=== PATIENT | male | born 1965 | race Caucasian/White ===

== ENCOUNTER 2016-02-27 16:02 | Emergency (ER) | payer MEDICARE ==
--- NOTE | 2016-02-27 17:06 | ERPHSYRPT ---
- History of Present Illness Time Seen by Provider: 02/27/16 16:45 Source: patient, other (caregiver) Exam Limitations: language barrier, physical impairment, other (Pt. is severly mentally challenged) Patient Subjective Stated Complaint: pulled g tube out. Triage Nursing Assessment: had a 12 second seizure at 1534 and then pulled his gtube button out. insertion hole intact to abd. pt is appropriate (severe MR)-- caregiver present Timing/Duration: today Severity: mild Associated Symptoms: denies symptoms Allergies/Adverse Reactions: carbamazepine Allergy (Mild, Verified 02/27/16 16:15) Cephalosporins Allergy (Mild, Verified 02/27/16 16:15) Carbapenems Allergy (Unknown, Verified 02/27/16 16:15) Penicillins Allergy (Unknown, Verified 02/27/16 16:15) Home Medications: Acetaminophen 325 mg [Tylenol 325 mg] 650 mg RC Q4H PRN PRN 06/09/15 [ History] Docusate Sodium 100 mg [Colace 100 MG] 100 mg G-TUBE BID 06/19/15 [History ] Ferrous Sulfate 325 mg [Feosol 325 mg] 325 mg PO DAILY 06/19/15 [History] Phenobarbital 60 mg G-TUBE BID 06/19/15 [History] Quetiapine Fumarate 400 mg G-TUBE HS 06/19/15 [History] Sodium Chloride 1 gm PO TID 06/19/15 [History] Temazepam 30 mg G-TUBE HS 06/19/15 [History] Loperamide HCl 2 mg [Imodium 2 mg] 2 mg G-TUBE UD PRN 06/30/15 [History] Demeclocycline HCl 300 mg PO DAILY 11/09/15 [History] Hx Tetanus, Diphtheria Vaccination/Date Given: Yes Hx Influenza Vaccination/Date Given: No Hx Pneumococcal Vaccination/Date Given: No Immunizations Up to Date: Yes - Review of Systems Constitutional: No Symptoms Eyes: No Symptoms Ears, Nose, & Throat: No Symptoms Respiratory: No Symptoms Cardiac: No Symptoms Abdominal/Gastrointestinal: No Symptoms Musculoskeletal: No Symptoms Skin: No Symptoms Neurological: No Symptoms, Other (at baseline) Psychological: Emotional Lability Endocrine: No Symptoms Hematologic/Lymphatic: No Symptoms Immunological/Allergic: No Symptoms - Past Medical History Pertinent Past Medical History: Yes Neurological History: Seizures, Other ENT History: No Pertinent History Cardiac History: No Pertinent History Respiratory History: No Pertinent History Endocrine Medical History: No Pertinent History Musculoskeletal History: No Pertinent History GI Medical History: No Pertinent History, Other History: No Pertinent History Psycho-Social History: Anxiety Male Reproductive Disorders: No Pertinent History Other Medical History: severe mental retardation, FX LEFT ARM 11/09/15 - Past Surgical History Past Surgical History: Yes Neuro Surgical History: Other Cardiac: No Pertinent History Respiratory: No Pertinent History Gastrointestinal: No Pertinent History, Other Genitourinary: No Pertinent History Musculoskeletal: No Pertinent History Male Surgical History: No Pertinent History Other Surgical History: vagal nerve stimulator implanted for seizures, PEG TUBE- -. (VNS replaced). Patient unable to provide information - Social History Smoking Status: Never smoker Exposure to second hand smoke: No Alcohol Use: None Drug Use: none Patient Lives Alone: No Significant Family History: no pertinent family hx - Nursing Vital Signs Nursing Vital Signs: Initial Vital Signs Temperature 97.6 F Temperature Source Axillary Pulse Rate 69 Respiratory Rate 18 Blood Pressure 93/53 Pain Intensity 0 - Physical Exam General Appearance: no apparent distress Eye Exam: eyes nml inspection Ears, Nose, Throat Exam: normal ENT inspection Neck Exam: normal inspection, non-tender, supple, full range of motion Respiratory Exam: normal breath sounds, lungs clear Cardiovascular Exam: regular rate/rhythm, normal heart sounds, normal peripheral pulses Gastrointestinal/Abdomen Exam: soft, other (G tube site with [id number] yellowish drainage. ) Extremity Exam: normal inspection, normal range of motion, pelvis stable Neurologic Exam: alert, other (baseline status) Skin Exam: normal color, warm, dry SpO2 Interpretation: normal Oxygen Delivery: Room Air Procedures - Additional Procedures Additional Procedures: gastric tube replacement (20 [place]ar[place] G tube placed without difficulty. Good air bubble auscultated . KUB confirms placement. ) - Course Nursing assessment & vital signs reviewed: Yes Ordered Tests: Active Orders 24 hr Category Date Time Status KUB Stat Exams 02/27/16 17:37 Ordered - Progress Progress: improved Counseled pt/family regarding: need for follow-up (with PCP 1 day) - Departure Time of Disposition: 18:05 Departure Disposition: Home Clinical Impression: Gastrojejunostomy tube dislodgement, Encounter for gastrojejunal tube placement Condition: Stable Critical Care Time: No
[2016-02-27 18:16] VITALS: BP 126/73; PULSE 86; O2SAT 100
--- NOTE | 2016-02-28 09:45 | XRAY ---
Indication: G-tube placement. Comparison: June 30, 2015 KUB again demonstrates left epigastric PEG tube with the tip now projecting in the left upper quadrant. Nonspecific nonobstructed bowel gas pattern. No large free air. Solid organs unremarkable. Osseous structures intact. Impression: PEG tube in situ as detailed in a otherwise negative KUB. Fluoroscopic PEG tube injection may yield further information if clinically warranted.
== END 2016-02-27 18:16 | disposition home or self-care (01) ==
LOC: ED 16:02
DX: K94.29 Other complications of gastrostomy (principal); Z43.1 Encounter for attention to gastrostomy
CPT/HCPCS: 74000; 99282